=== PATIENT | female | born 1985 | race American Indian/Alaskan Native ===

== ENCOUNTER 2017-11-16 10:39 | Emergency (ER) | payer MEDICAID, OTHER ==
[2017-11-16 11:12] VITALS: O2SAT 99
--- NOTE | 2017-11-16 11:37 | C.PDOC ---
History Of Present Illness Yazmin Gilmroe is a 32 year old female, with no past medical history, who presents to the emergency department complaining of pain and swelling to right elbow and distal left wrist s/p slip and fall on ice onset x4 days ago on Wednesday. Patient states she fell backwards onto outstretched arms. She denies any other medical complaints. PMD: Domitila Fischer Time Seen by Provider: 11/16/17 11:26 Chief Complaint (Nursing): Upper Extremity Problem/Injury History Per: Patient History/Exam Limitations: no limitations Onset/Duration Of Symptoms: Days (x4) Current Symptoms Are (Timing): Still Present Quality: "Pain" Past Medical History Reviewed: Historical Data, Nursing Documentation, Vital Signs Vital Signs: Last Vital Signs Temp 98.1 F 11/16/17 15:51 Pulse 74 11/16/17 15:51 Resp 18 11/16/17 15:51 BP 108/71 11/16/17 15:51 Pulse Ox 99 11/18/17 09:35 - Medical History PMH: No Chronic Diseases Surgical History: No Surg Hx Family History: States: Unknown Family Hx - Social History Hx Tobacco Use: No Hx Alcohol Use: Yes Hx Substance Use: No - Immunization History Hx Tetanus Toxoid Vaccination: No Hx Influenza Vaccination: No Hx Pneumococcal Vaccination: No Review Of Systems Musculoskeletal: Positive for: Arm Pain (right elbow), Hand Pain (distal left wrist) Neurological: Negative for: Weakness, Numbness Physical Exam - Physical Exam Skin: Normal Color, Warm, Dry Head: Atraumatic, Normacephalic Eye(s): bilateral: Normal Inspection Neck: Normal ROM, No Midline Cervical Tenderness, Supple Back: Normal Inspection, No Vertebral Tenderness Extremity: Normal ROM (at bilateral wrist ), Tenderness (to the right elbow with makred swelling. Painful pronation, supination of right arm. Mild left wrist tenderness, no swelling noted. ), Swelling (to the proximal elbow), No Other (right wrist nontender. Motor sensory intact. ) Extremity: Left: [place] Tenderness (right elbow, left distal ulna), Right: [place]ony [place] Tenderness Pulses: Left Radial: Normal, Right Radial: Normal Neurological/Psych: Oriented x3, Normal Speech, Normal Cognition, Normal Sensation ED Course And Treatment - Laboratory Results Urine POC: Negative O2 Sat by Pulse Oximetry: 99 (RA) Pulse Ox Interpretation: Normal - CT Scan/US elbow Other Rad Studies (CT/US): Read By Radiologist, Radiology Report Reviewed CT/US Interpretation: Prominent fracture deformity seen through the proximal ulna at the level of the coronoid process. Fracture traverses from the medial to lateral sided cortices with comminution at the fracture site as well as mild 2.5 millimeter anterior distraction of the proximal fracture fragment. Intra- articular extension. At the level of the ulnar aspect of the elbow joint space , there is a 3 millimeter ossific density concerning for a possible trapped loose osteochondral fragment. This is best seen on series 601, image 31. Large elbow joint effusion. Orthopedic Time Out: Side verified, Site verified Procedure: Splint Type: Posterior Location: Right, Arm Consent obtained: Verbal Performed by: Mid-level Provider (done by cp checked by me) Diagnosis: Fracture Type: Closed Location: Right Bone: Ulna ( elbow) Capillary refill: Normal Distal Sensation: Normal Distal Motor Function: Normal Capillary Refill: Normal Compartment: Normal Distal Sensation: Normal Distal Motor Function: Normal Medical Decision Making Medical Decision Making: Initial Impression: Right elbow and left wrist injury s/p fall Initial Plan: --Ext upper w/o contrast right [CT] --Tylenol 650 mg PO --Elbow right 3 views routine [RAD] --Wrist, left 3 views [RAD] --reevaluation 12:22 Wrist X-Ray FINDINGS: BONES: No fracture or lytic lesion. JOINTS: . No dislocation. SOFT TISSUES: Normal. OTHER FINDINGS: Negative ulnar variance IMPRESSION: No fracture or subluxation. Developmental negative ulnar variance 12:26 Elbow X-Ray FINDINGS: BONES: Ulnar-sided ulnar diaphyseal partial cortical nondisplaced fracture series 2, image 1. Additional non appreciated radiographically occult fractures not excluded JOINTS: No significant appear osteoarthritis. SOFT TISSUES: Reticulated subcutaneous edema mostly ulnar and posterior aspects upper extremity and 4 on levels. JOINT EFFUSION: Present OTHER FINDINGS: None. IMPRESSION: Ulnar-sided ulnar diaphyseal partial cortical nondisplaced fracture . Additional non appreciated radiographically occult fractures not excluded. No dislocation Elbow joint effusion. Subcutaneous reticulated edema --discussed with Dr Brown, requests ct elbow and posterior splint 338 pm splint applied, will d/c with ortho f.u Disposition Discussed With : Anne-Marie Brown Counseled Patient/Family Regarding: Studies Performed, Diagnosis, Need For Followup, Rx Given - Disposition Referrals: Anne-Marie Brown MD [Staff Provider] - Disposition: HOME/ ROUTINE Disposition Time: 15:39 Condition: STABLE Additional Instructions: Please wear splint for comfort and stability. Keep clean and dry. Cover up with plastic bag when bating. COld compresses to elbow to reduce swelling. Follow up with orthopedics in next 2 weeks. Prescriptions: Ibuprofen [Motrin] 600 mg PO TID #30 tab Instructions: Elbow Fracture in Adults (ED), Splint Care (ED) Forms: General Discharge Instructions, [facility] (Persian), Work Excuse - Clinical Impression Clinical Impression: Elbow fracture, right, Fall from slipping on wet surface - Scribe Statement Solomon Rodriguez All medical record entries made by the Scribe were at my direction and personally dictated by me. I have reviewed the chart and agree that the record accurately reflects my personal performance of the history, physical exam, medical decision making, and the department course for this patient. I have also personally directed, reviewed, and agree with the discharge instructions and disposition.
--- NOTE | 2017-11-16 12:23 | RAD ---
PROCEDURE: Left Wrist Radiographs. HISTORY: distal ulnar pain s/p fall outstretched arm COMPARISON: None. FINDINGS: BONES: No fracture or lytic lesion. JOINTS: . No dislocation. SOFT TISSUES: Normal. OTHER FINDINGS: Negative ulnar variance IMPRESSION: No fracture or subluxation. Developmental negative ulnar variance
--- NOTE | 2017-11-16 12:27 | RAD ---
PROCEDURE: Radiographs of the right elbow. HISTORY: pain and swelling s/p fall outstretched arm COMPARISON: No prior. FINDINGS: BONES: Ulnar-sided ulnar diaphyseal partial cortical nondisplaced fracture series 2, image 1. Additional non appreciated radiographically occult fractures not excluded JOINTS: No significant appear osteoarthritis. SOFT TISSUES: Reticulated subcutaneous edema mostly ulnar and posterior aspects upper extremity and 4 on levels. JOINT EFFUSION: Present OTHER FINDINGS: None. IMPRESSION: Ulnar-sided ulnar diaphyseal partial cortical nondisplaced fracture . Additional non appreciated radiographically occult fractures not excluded. No dislocation Elbow joint effusion. Subcutaneous reticulated edema
--- NOTE | 2017-11-16 15:21 | CT ---
CT right elbow History: Elbow fracture. Comparison: X-ray dated 11/16/2017 Technique: Multiple contiguous axial images were performed through the right elbow without the use of intravenous contrast. Subsequently, sagittal and coronal reformatted images were obtained. This CT exam was performed using one or more of the following dose reduction techniques: Automated exposure control, adjustment of the mA and/or kV according to patient size, and/or use of iterative reconstruction technique. Findings: Prominent fracture deformity seen through the proximal ulna at the level of the coronoid process. Fracture traverses from the medial to lateral sided cortices with comminution at the fracture site as well as mild 2.5 millimeter anterior distraction of the proximal fracture fragment. Intra-articular extension. At the level of the ulnar aspect of the elbow joint space, there is a 3 millimeter ossific density concerning for a possible trapped loose osteochondral fragment. This is best seen on series 601, image 31. Large elbow joint effusion. Impression: Prominent fracture deformity seen through the proximal ulna at the level of the coronoid process. Fracture traverses from the medial to lateral sided cortices with comminution at the fracture site as well as mild 2.5 millimeter anterior distraction of the proximal fracture fragment. Intra-articular extension. At the level of the ulnar aspect of the elbow joint space, there is a 3 millimeter ossific density concerning for a possible trapped loose osteochondral fragment. This is best seen on series 601, image 31. Large elbow joint effusion.
[2017-11-16 15:52] VITALS: BP 108/71; PULSE 74; RESP 18; TEMP 98.1
== END 2017-11-16 15:52 | disposition home or self-care (01) ==
LOC: C.ER 10:39
DX: S52.091A Other fracture of upper end of right ulna, initial encounter for closed fracture (principal); W00.0XXA Fall on same level due to ice and snow, initial encounter

== ENCOUNTER 2018-11-24 12:17 | Emergency (ER) | payer MEDICAID, OTHER ==
[2018-11-24 12:35] VITALS: BMI 25.8
[2018-11-24 12:44] VITALS: RESP 18; O2SAT 99
--- NOTE | 2018-11-24 13:07 | C.PDOC ---
History Of Present Illness 33 year old female, with no significant past medical history, presents to the ED for evaluation of nausea which began today. Patient also reports associated diarrhea, generalized abdominal cramping, and decreased PO intake. Patient has had positive sick contact with her son, who has been experiencing similar symptoms and also presents to the ED for evaluation. Patient denies fever, chills, headache, dizziness, cough, vomiting, back pain, urinary symptoms, or vaginal bleeding/discharge. Patient state she did not receive the flu vaccination this season. Chief Complaint (Nursing): GI Problem History Per: Patient History/Exam Limitations: no limitations Onset/Duration Of Symptoms: Hrs Current Symptoms Are (Timing): Still Present Location Of Pain/Discomfort: Diffuse Radiation Of Pain To:: None Quality Of Discomfort: Cramping, "Pain" Associated Symptoms: Nausea, Diarrhea. denies: Fever, Chills, Vomiting, Back Pain, Urinary Symptoms Additional History Per: Patient Abnormal Vaginal Bleeding: No Past Medical History Reviewed: Historical Data, Nursing Documentation, Vital Signs Vital Signs: Last Vital Signs Temp 97.3 F L 11/24/18 12:39 Pulse 71 11/24/18 12:39 Resp 18 11/24/18 12:39 BP 98/64 L 11/24/18 12:39 Pulse Ox 99 11/24/18 12:39 - Medical History PMH: No Chronic Diseases Surgical History: No Surg Hx Family History: States: Unknown Family Hx - Social History Hx Tobacco Use: No Hx Alcohol Use: Yes Hx Substance Use: No - Immunization History Hx Tetanus Toxoid Vaccination: No Hx Influenza Vaccination: No Hx Pneumococcal Vaccination: No Review Of Systems Constitutional: Positive for: Other (decreased PO intake ). Negative for: Fever, Chills Respiratory: Negative for: Cough Gastrointestinal: Positive for: Nausea, Abdominal Pain. Negative for: Vomiting, Diarrhea Genitourinary: Negative for: Dysuria, Frequency, Hematuria, Vaginal Discharge, Vaginal Bleeding Musculoskeletal: Negative for: Back Pain Physical Exam - Physical Exam Appears: Well, Non-toxic, No Acute Distress Skin: Normal Color, Warm, Dry Head: Atraumatic, Normacephalic Eye(s): bilateral: Normal Inspection Oral Mucosa: Moist Neck: Supple Chest: Symmetrical, No Deformity, No Tenderness Cardiovascular: Rhythm Regular, No Murmur Respiratory: Normal Breath Sounds, No Rales, No Rhonchi, No Wheezing Gastrointestinal/Abdominal: Soft, No Tenderness, No Guarding, No Rebound Extremity: Normal ROM, Capillary Refill (less than 2 seconds ) Neurological/Psych: Oriented x3, Normal Speech, Normal Cognition ED Course And Treatment - Laboratory Results Result Diagrams: 11/24/18 13:53 11/24/18 13:53 O2 Sat by Pulse Oximetry: 99 (on RA) Pulse Ox Interpretation: Normal Medical Decision Making Medical Decision Making: Impression: 33 year old female with nausea, diarrhea, generalized abdominal cramping, decreased PO intake Plan: * bloodwork * urinalysis * POC preg * flu swab * IV Fluids * reassess and disposition Progress: Bloodwork, urinalysis, and Flu swab ordered and reviewed. Patient given IV Fluids and Zofran. 14:15 Feeling better after fluids. Asking for discharge home. Bloodwork and urine unremarkable other than mild hypokalemia, replaced with 20mEq KCl Flu negative POC negative Tolerated PO without vomiting. Will discharge home with zofran prescription and recommend followup with PMD. Advised that illness is most likely viral but to return if symptoms persist/worsen. Diagnostic testing results and plan of care discussed with patient. Strict instructions given regarding prescription use, importance of followup, and signs /symptoms to return to ER including abdominal pain, fever, chills, vomiting, dizziness, or any other new/worsening symptoms. Pt verbalized understanding of discussion. Patient is A&Ox3, ambluating with steady gait, with vital signs stable for discharge. Disposition - Disposition Referrals: [facility] [Outside] Disposition: HOME/ ROUTINE Disposition Time: 15:00 Condition: IMPROVED Additional Instructions: Increase fluids Rest, no strenuous activity [place] diet Followup with primary doctor within 2 days Return to ER with any new/worsening symptoms Prescriptions: Ondansetron HCl [Zofran] 4 mg PO Q8H PRN #6 tablet PRN Reason: Nausea/Vomiting Instructions: Viral Gastroenteritis Forms: General Discharge Instructions, [facility] (Maltese), Work Excuse - Clinical Impression Clinical Impression: Viral syndrome, Nausea - PA / DENTAL PATIENT COORDINATOR / Resident Statement MD/DO has reviewed & agrees with the documentation as recorded. - Scribe Statement The provider has reviewed the documentation as recorded by the Scribe (Ivania Meyers) All medical record entries made by the Scribe were at my direction and personally dictated by me. I have reviewed the chart and agree that the record accurately reflects my personal performance of the history, physical exam, medical decision making, and the department course for this patient. I have also personally directed, reviewed, and agree with the discharge instructions and disposition.
[2018-11-24] MEDS: Sodium Chloride 0.9% 1,000 ML IV ONE (13:46)
[2018-11-24 14:00] LABS: BASO % 0.3 % (0.0-2.0); EOS # 0.1 K/uL (0.0-0.7); EOS % 1.3 % (0.0-4.0); HEMOGLOBIN 13.8 g/dL (11.0-16.0); LYMPH # 1.3 K/uL (1.0-4.3); LYMPH % 14.5 % (20.0-40.0); MEAN CELL VOLUME 84.9 fL (81.0-99.0); MEAN CORPUSCULAR HGB CONC 32.9 g/dL (33.0-37.0); MEAN PLATELET VOLUME 8.7 fL (7.2-11.7); MONO # 0.8 K/uL (0.0-0.8); MONO % 9.3 % (0.0-10.0); NEUT # 6.5 K/uL (1.8-7.0); NEUT % 74.6 % (50.0-75.0); RBC 4.93 Mil/uL (3.80-5.20); RED CELL DISTRIBUTION WIDTH 13.9 % (11.5-14.5); WHITE BLOOD COUNT 8.8 K/uL (4.8-10.8)
[2018-11-24 14:07] LABS: SQUAMOUS EPITHIAL 1 /hpf (0-5); URINE BILIRUBIN NEGATIVE (NEGATIVE); URINE BLOOD NEGATIVE (NEGATIVE); URINE CLARITY Clear (Clear); URINE COLOR Yellow (YELLOW); URINE GLUCOSE (UA) NORMAL (Normal); URINE LEUKOCYTE ESTERASE NEG Leu/uL (Negative); URINE PROTEIN NEGATIVE (NEGATIVE); URINE UROBILINOGEN NORMAL mg/dL (0.2-1.0)
[2018-11-24 14:13] LABS: ALB/GLOB RATIO 1.1 (1.0-2.1); ALBUMIN 4.6 g/dL (3.5-5.0); ALT/SGPT 39 U/L (9-52); AST/SGOT 26 U/L (14-36); BLOOD UREA NITROGEN 19 mg/dL (7-17); CALCIUM 9.7 mg/dl (8.6-10.4); GFR NON-AFRICAN AMERICAN > 60; LIPASE 77 U/L (23-300)
[2018-11-24] MEDS: Potassium Chloride 20 mEq ER Tab PO STA (14:52)
[2018-11-24] MEDS ORDERED: Potassium Chloride 20 mEq ER Tab PO ONE (14:54)
[2018-11-24 14:56] VITALS: BP 101/65; PULSE 70; TEMP 98.2
== END 2018-11-24 15:07 | disposition home or self-care (01) ==
LOC: C.ER 12:17
DX: B34.9 Viral infection, unspecified (principal); R11.0 Nausea
CPT/HCPCS: 80053; 81001; 81025; 83690; 85025; 87804; 96361; 96374; 99284; J2405; J7030

== ENCOUNTER 2018-12-06 11:55 | Emergency (ER) | payer MEDICAID, OTHER ==
[2018-12-06 11:55] VITALS: BMI 25.8
[2018-12-06 12:02] VITALS: BP 108/65; PULSE 81; RESP 18; TEMP 97.2; O2SAT 99
--- NOTE | 2018-12-06 13:33 | C.PDOC ---
History Of Present Illness 33 y/o female presents to the ED for evaluation of left elbow pain, worsening since fall on Wednesday night. Patient states she tripped and fell onto her left elbow. She now complains of swelling and pain, progressing over the past 4 days. Patient states she is having difficulty moving the elbow, prompting this ED visit. Denies any other injury. Patient has no numbness, tingling, or focal weakness. No open wounds. Time Seen by Provider: 12/06/18 12:45 Chief Complaint (Nursing): Upper Extremity Problem/Injury History Per: Patient History/Exam Limitations: no limitations Onset/Duration Of Symptoms: Days (x4) Current Symptoms Are (Timing): Still Present Past Medical History Reviewed: Historical Data, Nursing Documentation, Vital Signs Vital Signs: Last Vital Signs Temp 97.2 F L 12/06/18 12:00 Pulse 81 12/06/18 12:00 Resp 18 12/06/18 12:00 BP 108/65 12/06/18 12:00 Pulse Ox 99 12/06/18 12:00 - Medical History PMH: No Chronic Diseases Surgical History: No Surg Hx Family History: States: Unknown Family Hx - Social History Hx Tobacco Use: No Hx Alcohol Use: Yes Hx Substance Use: No - Immunization History Hx Tetanus Toxoid Vaccination: No Hx Influenza Vaccination: No Hx Pneumococcal Vaccination: No Review Of Systems Constitutional: Negative for: Fever, Chills, Weakness Eyes: Negative for: Redness, Other (scleral icterus) ENT: Negative for: Mouth Swelling Cardiovascular: Negative for: Chest Pain Respiratory: Negative for: Cough, Shortness of Breath Gastrointestinal: Negative for: Nausea, Vomiting, Diarrhea Genitourinary: Negative for: Dysuria Musculoskeletal: Positive for: Arm Pain (Left elbow). Negative for: Back Pain Skin: Negative for: Rash, Lesions Neurological: Negative for: Weakness, Numbness, Dizziness Physical Exam - Physical Exam Appears: Well, Non-toxic, No Acute Distress Skin: Normal Color, Warm, No Rash Head: Atraumatic, Normacephalic Eye(s): bilateral: Normal Inspection, PERRL, EOMI Neck: Normal ROM, Supple Chest: Symmetrical Respiratory: No Accessory Muscle Use, Other (Normal inspiratory effort) Extremity: No Tenderness (to the shoulder, wrist, or digits), Capillary Refill (< 2 sec), Swelling (to the left elbow), Other (Elbow held flexed at 90 degree angle; (+) pain on extension of elbow, Automotive Service Cashier strength equal bilaterally) Extremity: Bilateral: Other (Pulses and distal sensation intact) Pulses: Left Radial: Normal, Right Radial: Normal Neurological/Psych: Oriented x3, Normal Speech, Normal Motor, Normal Sensation Gait: Steady ED Course And Treatment - Laboratory Results Urine POC: Negative O2 Sat by Pulse Oximetry: 99 (RA) Pulse Ox Interpretation: Normal - Other Rad Left elbow x-ray X-Ray: Viewed By Me, Read By Radiologist Interpretation: Accession No. : [id number]. Patient Name / ID : SARTHAK THAPA / [id number]. Exam Date : 12/06/2018 13:30:24 ( Approved ). Study Comment : Sex / Age : F / 33Y. Creator : Shiloh Da Silva. Dictator : Shiloh Da Silva. Vessel Captain : Mineral Wool Insulation Supervisor : Shiloh Da Silva. Approver2 : Report Date : 12/06/2018 14:02:45. My Comment : . Date of service: 12/06/2018. PROCEDURE: Radiographs of the left elbow. HISTORY: elbow fracture. COMPARISON: No prior. FINDINGS: BONES: A nondisplaced radial head lucency compatible with a nondisplaced radial head fracture intra-articular per series 3, image 1 noted. The elevated fat pad/anterior elbow joint effusion is consistent with this. JOINTS: No prominent osteoarthrosis noted. SOFT TISSUES: Soft tissue swelling s ubcutaneous reticulated edema-upper arm and forearm flanking elbow noted. JOINT EFFUSION: Present as above. OTHER FINDINGS: None. IMPRESSION: Radial head intra-articular nondisplaced-fracture with joint effusion. No gross depression appreciated. Medical Decision Making Medical Decision Making: Impression: Elbow injury Plan: Left elbow x-ray taken and reviewed. X-ray shows radial head fracture with joint effusion. Posterior splint applied to left elbow by me. Sling provided. Patient advised to follow up with orthopedist in 1-2 days. Disposition Counseled Patient/Family Regarding: Diagnosis, Need For Followup - Disposition Referrals: Vicente Saravia III, MD [Staff Provider] - Disposition: HOME/ ROUTINE Disposition Time: 14:24 Condition: STABLE Instructions: Radius Fracture (DC) Forms: General Discharge Instructions, [facility] ([place]an) - POA Present On Arrival: Falls Or Trauma - Clinical Impression Clinical Impression: Radial head fracture, closed - PA / ORDER TAKERS SUPERVISOR / Resident Statement MD/DO has reviewed & agrees with the documentation as recorded. - Scribe Statement The provider has reviewed the documentation as recorded by the Kellyibnury Vincent All medical record entries made by the Deon were at my direction and personally dictated by me. I have reviewed the chart and agree that the record accurately reflects my personal performance of the history, physical exam, medical decision making, and the department course for this patient. I have also personally directed, reviewed, and agree with the discharge instructions and disposition.
--- NOTE | 2018-12-06 14:06 | RAD ---
Date of service: 12/06/2018 PROCEDURE: Radiographs of the left elbow. HISTORY: elbow fracture COMPARISON: No prior. FINDINGS: BONES: A nondisplaced radial head lucency compatible with a nondisplaced radial head fracture intra-articular per series 3, image 1 noted. The elevated fat pad/anterior elbow joint effusion is consistent with this. JOINTS: No prominent osteoarthrosis noted SOFT TISSUES: Soft tissue swelling subcutaneous reticulated edema-upper arm and forearm flanking elbow noted. JOINT EFFUSION: Present as above OTHER FINDINGS: None IMPRESSION: Radial head intra-articular nondisplaced-fracture with joint effusion. No gross depression appreciated. Comments: Study marked for PA review .
== END 2018-12-06 14:57 | disposition home or self-care (01) ==
LOC: C.ER 11:55
DX: S52.125A Nondisplaced fracture of head of left radius, initial encounter for closed fracture (principal); W01.0XXA Fall on same level from slipping, tripping and stumbling without subsequent striking against object, initial encounter